=== PATIENT | male | born 1965 | race Caucasian/White ===

== ENCOUNTER 2019-01-03 16:29 | Inpatient (IN) ==
[2019-01-03] MEDS ORDERED: PULMICORT INH ONE (16:48)
[2019-01-03] MEDS ORDERED: DUONEB (A & A) INH ONE (16:48)
[2019-01-03 17:01] LABS: BASO% 1.5 % (0.0-0.8); EOS# 0.33 X1000 (0.0-0.7); HEMATOCRIT 43.1 % (42.0-52.0); HEMOGLOBIN 15.4 g/dL (14.0-18.0); IMM GRAN# 0.04 X1000 (0.0-0.04); IMM GRAN% 0.6 % (0.0-0.5); LYMPH# 0.78 X1000 (1.2-3.4); LYMPH% 11.8 % (20.5-51.1); MCH 28.6 PG (27-31); MCHC 35.7 g/dL (33-37); MCV 80.1 FL (81-99); MONO# 0.65 X1000 (0.11-0.59); MONO% 9.8 % (1.7-9.3); MPV 10.3 FL (7.4-10.4); NEUT% 71.3 % (42.2-75.2); PLT 167 X1000 (130-400); RBC 5.38 XMIL (4.7-6.1)
--- NOTE | 2019-01-03 17:01 | Diag Imaging Result Doc PS360 ---
EXAM: CHEST-PORTABLE HISTORY: chest pain TECHNIQUE: Portable chest single view COMPARISON: 12/15/2018 FINDINGS: The lungs are well expanded. The heart is not enlarged. The vessels are not distended. There are no infiltrates. No effusion identified. Mild scoliosis. Prior surgery to the lower neck. IMPRESSION: Negative exam. Electronically signed by Car Mckeon 01/03/2019 4:59 PM
[2019-01-03 17:23] LABS: AGAP 13; ALB/GLOB RATIO 1.8; ALBUMIN 4.3 g/dL (3.5-5.0); ALKALINE PHOSPHATASE 108 U/L (32-122); BUN 15 mg/dL (8-22); CALCIUM 9.6 mg/dL (8.8-10.2); CHLORIDE 99 mmol/L (98-107); CK PROFILE 88 U/L (24-204); COSMO 283; CREATININE 0.7 mg/dL (0.7-1.2); ESTIMATED GFR > 60; GLUCOSE 185 mg/dL (70-104); GOT 19 U/L (10-34); GPT 20 U/L (10-44); POTASSIUM 3.9 mmol/L (3.5-5.1); SODIUM 139 mmol/L (136-145); TCO2 27 mmol/L (25-35); TOTAL BILIRUBIN 0.58 mg/dL (0.20-1.00); TOTAL PROTEIN 6.7 g/dL (6.3-8.3)
[2019-01-03 17:40] LABS: ALLEN TEST YES; BE 5.6 mmoll (-3.0-3.0); BLOOD TYPE ARTERIAL; HCO3-(ACT) 29.1 mmoll (20.0-26.0); METHB 1.4 % (0.0-1.5); O2(CT) 19.6 mL/dL (15.0-23.0); O2HB 91.6 % (95.0-99.0); PCO2(98.6) 41 mmHg (35-45); PO2(98.6) 85 mmHg (60-100); SAMPLE BLOOD; SAO2 98.7 % (95.0-100.0); THB 15.2 g/dL (11.5-17.4); pH(98.6) 7.47 (7.35-7.45)
[2019-01-03 17:41] LABS: MODALITY ROOM AIR
--- NOTE | 2019-01-03 17:46 | PROVIDER DOCUMENTATION ---
This chart was entered by Cherelle Dempsey Scribe, acting as scribe for Ayse Broderick MD. HPI-Chest Pain - General Stated Complaint: chest pain Time Seen by Provider: 01/03/19 16:41 Source: patient Allergies/Adverse Reactions: Patient Allergies Allergy/AdvReac Type Severity Reaction Status Date / Time No Known Allergies Allergy Verified 05/04/17 00:44 Home Medications: Home Medication List Medication Instructions Recorded Confirmed Last Taken Type Buprenorphine/Naloxone S.l. 1 each SL BID #0 tablet 08/20/14 08/09/17 08/08/17 Rx [Suboxone 8 mg/2 mg] Gabapentin [Neurontin] 300 mg PO BID 09/03/15 08/09/17 08/08/17 History Metformin HCl 1,000 mg PO QHS 09/03/15 08/09/17 08/08/17 History Quetiapine Fumarate [Seroquel] 50 mg PO QHS 09/03/15 08/09/17 08/08/17 History Alprazolam [Xanax] 1 mg PO BID 05/04/17 08/09/17 08/08/17 History Ibuprofen [Motrin] 800 mg PO BID 05/04/17 08/09/17 08/08/17 History Lisinopril 20 mg PO DAILY 05/04/17 08/09/17 08/08/17 History Sulfamethoxazole/Trimethoprim 1 ea PO BID #10 tab 05/04/17 08/09/17 08/08/17 Rx [Bactrim Ds Tablet] Amoxicillin/Pot Clavulanate 875 mg PO Q12HR #14 tab 10/10/17 Unknown Rx [Augmentin] Lisinopril 20 mg PO DAILY #30 tab 12/15/18 Unknown Rx - History of Present Illness-CP Nature of Presenting Problem: 53 yowm presents to ed via ems with c/o chest pain, sob, n/v, diaphoresis and cough for 1 month and has been intermittent. pt sts has been taking his spray Nitro and ASA and pain has improved but last night pain returned and nitro and ASA seemed to lessen again till today when pt started to cut grass. pt sts pain came back worse then in the past and came in and called 911. pt on exam still has pain and is wheezing, diaphoretic with cough and sob. Location: reports: substernal Chest Pain Radiation: reports: no radiation Quality of Pain: reports: pressure Severity in ED: moderate Onset/Duration: just prior to arrival Timing: still present, intermittent Context/Activities at Onset: reports: light activity Modifying Factors: improves with: nothing Associated Symptoms: reports: nausea, shortness of breath, vomiting. denies: abdominal pain, back pain Nitro Today/Relief: provided at home (unnown amount of nitro spray since last night and today), mild relief Aspirin Treatment Today: provided at home (sts has been taking ASA since yesterday multiple times unknown how much) Review of Systems - Adult - REVIEW OF SYSTEMS - ADULT Constitutional: reports: no symptoms reported Eyes: reports: no symptoms reported Ears, Nose, Mouth & Throat: reports: no symptoms reported Cardiovascular: reports: see HPI, chest pain, edema. denies: syncope Respiratory: reports: see HPI, chronic cough, shortness of breath, wheezing Gastrointestinal: reports: see HPI, nausea, vomiting Genitourinary: reports: no symptoms reported Musculoskeletal: reports: no symptoms reported Integumentary: reports: no symptoms reported Neurological: denies: dizziness/vertigo, headache/migraines, slurred speech, syncope, tremors Psychiatric: reports: no symptoms reported Endocrine: reports: see HPI, excessive sweating Hematologic/Lymphatic: reports: no symptoms reported Allergic/Immunologic: reports: no symptoms reported All Other Systems: Reviewed and Negative Past History - Adult - PAST MEDICAL HISTORY-ADULT Review of Records: reports: Old Records Reviewed, Nursing Assessment Review, Medications Reviewed, Social history reviewed & non-contributory. Major Childhood Illnesses: reports: denies history Cardiovascular: reports: CAD, HTN, hyperlipidemia, [place] Respiratory: reports: COPD Genitourinary: reports: denies history Musculoskeletal: reports: chronic pain, other ("9 back surgeries") Neurological: reports: CVA (s/p TPA July 2012), other (hx of brain bleed) Endocrine/Immune: reports: Diabetes Diabetes Type: Type 2 Other Conditions: reports: MRSA - PRIOR SURGERIES/PROCEDURES Surgical/Procedure History: reports: cardiac stent, orthopedic (extremity) (knee Sx), back/neck (neck and back Sx) - IMMUNIZATION STATUS Childhood Immunizations: UTD Flu Vaccine: See Nurse Assessment - FAMILY HISTORY Family History: diabetes, CAD over 55 yo, CVA/TIA, HTN - SOCIAL HISTORY Smoking: cigarettes, chew, greater than 1 pack/day Provider spent 3-5 mins advising pt. on dangers of tobacco.: Discussed manners to quit use, and f/u contacts for add'l counseling. Substance Use: alcohol, marijuana Alcohol Use Frequency: occasionally Number of drinks per typical drinking period:: 3-4 drinks Living Situation: family Physical Exam-General - PHYSICAL EXAM-ADULT Initial Vital Signs Reviewed: Yes - CONSTITUTIONAL General Appearance: alert, mild distress, obese, anxious - EYES Eyes: PERRL/EOMI, pink conjunctivae - HEAD, EARS, NOSE, MOUTH & THROAT HENMT: moist mucous membranes, dental decay - NECK Neck: non-tender, full range of motion, supple, normal inspection - RESPIRATORY Respiratory: chest non-tender, wheezing, increased rate (24) - CARDIOVASCULAR Cardiovascular: normal peripheral pulses, tachycardia (105) - GASTROINTESTINAL (ABDOMEN) Abdominal Exam: normal bowel sounds, non tender, soft, other (nausea) - MUSCULOSKELETAL Back Exam: normal inspection, no CVA tenderness, no vertebral tenderness Extremity: normal range of motion, normal capillary refill, swelling (BLE edema) - SKIN Integumentary: diaphoresis. negative: normal color (flushed in appearance) - NEUROLOGIC Neurologic: grossly normal - PSYCHIATRIC Psych/Mental Status: normal mood/affect, normal thought content, normal thought process, oriented x 3, anxious - HEART Score HEART Score: History: Moderately Suspicious HEART Score: ECG: Non-Specific Repolarization Disturbance/LBBB/PM HEART Score: Age: 45-65 Years HEART Score: Risk Factors for Atherosclerotic Disease: 1 or 2 Risk Factors HEART Score: Troponin: < or = Normal Limit Total HEART Score:: 4 Progress - PLAN OF CARE/RESULTS Progress/Plan/Lab Results: Vital Signs - 8 hr 01/03/19 16:30 01/03/19 18:14 Temperature 98.0 F Pulse Rate 106 H 106 H Respiratory Rate 20 22 Blood Pressure 164/115 O2 Sat by Pulse Oximetry 97 Laboratory Results - last 24 hr 01/03/19 01/03/19 01/03/19 16:45 16:45 16:45 WBC 6.60 RBC 5.38 Hgb 15.4 Hct 43.1 MCV 80.1 L MCH 28.6 MCHC 35.7 RDW Std Deviation 13.0 Plt Count 167 MPV 10.3 Immature Gran % (Auto) 0.6 H Neut % (Auto) 71.3 Lymph % (Auto) 11.8 L [place] % (Auto) 9.8 H Eos % (Auto) 5.0 Baso % (Auto) 1.5 H Immature Gran # (Auto) 0.04 Neut # (Auto) 4.70 Lymph # (Auto) 0.78 L [place] # (Auto) 0.65 H Eos # (Auto) 0.33 Baso # (Auto) 0.10 Specimen Type Sample Site pH pCO2 pO2 HCO3 Base Excess Oxyhemoglobin ABG O2 Sat (Calculated) ABG O2 Saturation ABG Carboxyhemoglobin ABG Methemoglobin Samuel Test A-a O2 Difference Total Hemoglobin Lactate Blood Gas Modality FiO2 % Sodium 139 Potassium 3.9 Chloride 99 Carbon Dioxide 27 Anion Gap 13 BUN 15 Creatinine 0.7 Estimated GFR/1.73 m2 > 60 BUN/Creatinine Ratio 21 Glucose 185 H Calculated Osmolality 283 Calcium 9.6 Total Bilirubin 0.58 AST 19 ALT 20 Alkaline Phosphatase 108 Creatine Kinase 88 Troponin T [id number] Pept 178 H Total Protein 6.7 Albumin 4.3 Globulin 2.4 Albumin/Globulin Ratio 1.8 01/03/19 01/03/19 16:45 17:35 WBC RBC Hgb Hct MCV MCH MCHC RDW Std Deviation Plt Count MPV Immature Gran % (Auto) Neut % (Auto) Lymph % (Auto) [place] % (Auto) Eos % (Auto) Baso % (Auto) Immature Gran # (Auto) Neut # (Auto) Lymph # (Auto) [place] # (Auto) Eos # (Auto) Baso # (Auto) Specimen Type ARTERIAL Sample Site L RADIAL pH 7.47 H pCO2 41 pO2 85 HCO3 29.1 H Base Excess 5.6 H Oxyhemoglobin 91.6 L ABG O2 Sat (Calculated) 19.6 ABG O2 Saturation 98.7 ABG Carboxyhemoglobin 5.80 H* ABG Methemoglobin 1.4 Samuel Test YES A-a O2 Difference 13.0 Total Hemoglobin 15.2 Lactate 1.20 Blood Gas Modality ROOM AIR FiO2 % 21.0 Sodium Potassium Chloride Carbon Dioxide Anion Gap BUN Creatinine Estimated GFR/1.73 m2 BUN/Creatinine Ratio Glucose Calculated Osmolality Calcium Total Bilirubin AST ALT Alkaline Phosphatase Creatine Kinase Troponin T < 0.010 [id number] Pept Total Protein Albumin Globulin Albumin/Globulin Ratio Orders Category Date Time Status Saline Loc NOW Care 01/03/19 16:46 Active CHEST-PORTABLE [RAD] Stat Exams 01/03/19 16:46 Completed ABG [RESP] Routine Lab 01/03/19 17:35 Completed CBC WITH DIFF [HEME] Stat Lab 01/03/19 16:45 Completed CK PROFILE [SP CHEM] Stat Lab 01/03/19 16:45 Completed COMPREHENSIVE METABOLIC PANEL [CHEM] Stat Lab 01/03/19 16:45 Completed PRO B-NATRIURETIC PEPTIDE Stat Lab 01/03/19 16:45 Completed TROPONIN T Stat Lab 01/03/19 16:45 Completed Albuterol 2.5MG/Ipratrop 0.5MG [Duoneb (A & A)] Med 01/03/19 16:48 Discontinued 3 ml INH NOW ONE Budesonide [Pulmicort] Med 01/03/19 16:48 Discontinued 0.5 mg INH NOW ONE Enoxaparin 1 mg/kg [Lovenox 1 mg/kg] Med 01/03/19 18:15 Discontinued 1 each SUBQ NOW ONE Morphine Med 01/03/19 18:20 Once 4 mg IV NOW ONE Ondansetron [Zofran] Med 01/03/19 18:20 Once 4 mg IV NOW ONE Aerosol Treatments Routine Oth 01/03/19 16:48 Completed Aerosol Treatments Routine Oth 01/03/19 16:48 Completed Aerosol Treatments Stat Oth 01/03/19 16:48 Completed Aerosol Treatments Stat Oth 01/03/19 16:48 Completed Result Diagrams: 01/03/19 16:45 01/03/19 16:45 - REASSESSMENT Reassessment #1 Time Reassessed: 17:04 Status: unchanged - EKG 1 Time of EKG reading by physician:: 16:31 EKG Read and Signed by:: Ayse Broderick EKG Interpretation (*Must complete 3 of following elements*): Normal Rate: 105 Rhythm: sinus tachycardia Faber: normal QRS: normal FL Interval: normal ST Wave: normal - XRAY 1 XRAY: Bilateral XRAY Study: Chest Impression: See EMR Report (EXAM: CHEST-PORTABLE HISTORY: chest pain TECHNIQUE: Portable chest single view COMPARISON: 12/15/2018 FINDINGS: The lungs are well expanded. The heart is not enlarged. The vessels are not distended. There are no infiltrates. No effusion identified. Mild scoliosis. Prior surgery to the lower neck. IMPRESSION: Negative exam. Electronically signed by Car Mckeon 01/03/2019 4:59 PM 01/03/191658 Interpreting Physician: Car Mckeon MD Dictated Date/Time: 01/03/191657 cc: Ayse Broderick MD; None,PCP) - CONSULTS/PCP/HOSPITALIST Notification #1 *Consult/PCP/Hospitalist*: Dr Rhodes, hospitalist Time Discussed: 18:20 Consult Disposition: Will see in ED, Admit Departure - Departure Date of Disposition Decision: 01/03/19 Time of Disposition Decision: 18:19 DIAGNOSIS: Chest pain Disposition: ADMITTED INPATIENT 09 Certified Medical Emergency: Emergent Condition: Serious Referrals and Follow-Ups: None,PCP [Primary Care Provider] - - Critical Care Note This patient required my direct & personal management of CC.: No Attestation - Physician/ BASSEM Attestation Patient care was provided by Advanced Practice Provider:: No The physician spent face to face time with patient:: Yes Advanced Practice Provider documentation review:: Supervising physician onsite and consulted in the evaluation and care of this patient. The physician did have a face to face encounter with the patient. This chart was documented by the indicated scribe, (Cherelle Dempsey Scribe) and accurately reflects the services I performed and decisions made by me, Ayse Broderick MD, as attested by the provider's signature.
[2019-01-03] MEDS: LOVENOX 1 MG/KG SUBQ ONE (18:15)
[2019-01-03] MEDS ORDERED: ZOFRAN IV ONE (18:20)
[2019-01-03] MEDS ORDERED: MORPHINE IV ONE (18:20)
[2019-01-03] MEDS ORDERED: ASPIRIN PO STA (18:21)
[2019-01-03] MEDS ORDERED: LOPRESSOR PO ONE (18:22)
[2019-01-03] MEDS ORDERED: LOVENOX SUBQ ONE (18:30)
[2019-01-03] MEDS ORDERED: LIPITOR PO ONE (19:01)
[2019-01-03] MEDS ORDERED: PROTONIX IV ONE (19:02)
[2019-01-03] MEDS: LABETALOL IV PRN (19:48)
[2019-01-03] MEDS: SODIUM CHLORIDE 0.9% INJ SCH (20:07)
[2019-01-03] MEDS: APRESOLINE IV PRN (20:08)
--- NOTE | 2019-01-03 20:25 | HISTORY AND PHYSICAL ---
CHIEF COMPLAINT: Chest pain of about 4 weeks' duration. HISTORY OF PRESENT ILLNESS: Mr. Chowdhury is a 53-year-old man, with past medical history of medical noncompliance, coronary artery disease, status post stent in RCA twice and LAD once in 2012, intracranial hemorrhage, active tobacco abuse, type 2 diabetes mellitus, COPD, chronic pain, who comes in with chief complaints of chest pain and diaphoresis. In the emergency room, his vitals showed hypertension with systolic blood pressure of 160. EKG has sinus tachycardia and troponins are negative. Hospitalist team has been consulted for further management of his chest pain. Apparently, the patient had coronary artery disease requiring stenting in 2012, following which he had developed intracranial hemorrhage. He was admitted again in 2016 with chest pain episode, and cardiology team was working him up. He had undergone myocardial perfusion imaging which was unremarkable in 2016. However, before his medication regimen could be optimized, he had left against medical advice. The patient had not been taking any medicines whatsoever for several years now. He has not seen any regular doctor or heart doctor in several years now. He had presented to emergency room with chest pain about 2 weeks ago, and was discharged home on blood pressure medication, but he has not filled any medication. He states he does not have insurance and he does not work. Currently, he is complaining of substernal chest pain, 8 on 10 intensity, radiating to left shoulder, associated with diaphoresis and mild shortness of breath. He denies any palpitation. He denies cough. He denies nausea, vomiting, abdominal pain, though he did have vomiting episode about 2 weeks ago. He denies burning urination or diarrhea or constipation. REVIEW OF SYSTEMS: Positive for headache. Positive for anxiety. PAST MEDICAL HISTORY: 1. Coronary artery disease, requiring PCI in 2012, twice in RCA and LAD. 2. Hemorrhagic stroke in 2013, without any residual defects. 3. Active tobacco abuse. 4. Noninsulin-dependent diabetes mellitus. 5. Essential hypertension. 6. Hyperlipidemia. 7. COPD. 8. Chronic pain disorder. PAST SURGICAL HISTORY: 1. Multiple back surgeries. 2. Multiple neck surgeries. 3. Bilateral knee arthroscopy. CURRENT MEDICATION: He is not taking any medication whatsoever. ALLERGIES: No known allergies. FAMILY HISTORY: Positive for hypertension. VITAL SIGNS: Currently, temperature 98.6 degrees, pulse 85, respiratory rate 17, blood pressure 160/100. He is saturating 98% on room air. PHYSICAL EXAMINATION: GENERAL: He does not appear to be in any acute distress. He appears anxious. No pallor, cyanosis, clubbing, or icterus. ORAL CAVITY: Moist. LUNGS: Air entry bilaterally equal. No wheeze, rhonchi, crackles. CARDIOVASCULAR: S1, S2 normal. No murmur or gallop. ABDOMEN: Soft, nontender. EXTREMITIES: No lower extremity edema. There is no hepatojugular reflux. NEUROLOGIC: He is alert oriented x3. He does not have any focal deficit. LABS: Suggestive of normal hemoglobin, normal platelet count, normal WBC. He has normal BUN, normal creatinine, normal troponins. ProBNP is 178. IMAGING: Chest x-ray did not have any acute cardiopulmonary process. EKG: Sinus tachycardia. ASSESSMENT AND PLAN: 1. Chest pain at rest, with prior history of coronary artery disease, requiring stent in 2012 with suspicion for unstable angina. 2. History of intracranial hemorrhage in 2013. 3. Noninsulin-dependent diabetes mellitus. 4. Active tobacco abuse. 5. Obesity. 6. Medical noncompliance. PLAN: The patient's chest pain is concerning, considering he previously had coronary artery disease with stenting and he has not been on any medication. He took 325 mg of aspirin at home. I will start him on beta blockers, aspirin, statin. I will get echocardiogram, serial troponins, and nuclear medicine stress test. I will consult Cardiology tomorrow morning. I will admit him in cardiac unit. Plan of care discussed with the patient. His questions have been answered. cc: MD BETTYE Pierre
[2019-01-03] MEDS: HUMALOG SUBQ SCH (21:41)
[2019-01-04] MEDS: APRESOLINE IV PRN (00:46)
[2019-01-04] MEDS: NITROGLYCERIN SL PRN ×3 (01:49→09:00)
[2019-01-04] MEDS: MORPHINE IV PRN ×2 (02:05→09:42)
--- NOTE | 2019-01-04 02:14 | EKG Report ---
Test Performed on : 01/04/2019 01:59:21 AM Test Reason : CP Blood Pressure : / mmHG Vent. Rate : 081 BPM Atrial Rate : 081 BPM P-R Int : 200 ms QRS Dur : 096 ms QT Int : 384 ms P-R-T Axes : 073 013 072 degrees QTc Int : 446 ms Normal sinus rhythm. Possible Left atrial enlargement Nonspecific T wave abnormality Abnormal ECG When compared with ECG of 03-JAN-2019 16:31, (Unconfirmed) Nonspecific T wave abnormality, worse in Anterolateral leads Confirmed by Chad Monk MD ([id number]) on 01/04/2019 4:28:25 PM
[2019-01-04] MEDS: LABETALOL IV PRN (02:17)
[2019-01-04] MEDS: LOPRESSOR PO SCH ×2 (05:36→09:00)
[2019-01-04 05:54] LABS: AGAP 10; BUN 15 mg/dL (8-22); CALCIUM 9.6 mg/dL (8.8-10.2); CHLORIDE 104 mmol/L (98-107); COSMO 288; CREATININE 0.8 mg/dL (0.7-1.2); ESTIMATED GFR > 60; GLUCOSE 143 mg/dL (70-104); MAGNESIUM 1.9 mg/dL (1.5-2.7); POTASSIUM 3.9 mmol/L (3.5-5.1); SODIUM 143 mmol/L (136-145); TCO2 29 mmol/L (25-35)
[2019-01-04 05:57] LABS: HEMOGLOBIN A1C 6.1 % (4.8-6.0)
[2019-01-04] MEDS: SODIUM CHLORIDE 0.9% INJ SCH (06:02)
[2019-01-04 06:13] LABS: BASO# 0.14 X1000 (0.0-0.2); BASO% 2.3 % (0.0-0.8); EOS# 0.35 X1000 (0.0-0.7); EOS% 5.6 % (0.0-10.0); HEMATOCRIT 42.6 % (42.0-52.0); HEMOGLOBIN 14.9 g/dL (14.0-18.0); IMM GRAN# 0.04 X1000 (0.0-0.04); IMM GRAN% 0.6 % (0.0-0.5); LYMPH# 1.11 X1000 (1.2-3.4); LYMPH% 17.8 % (20.5-51.1); MCH 28.5 PG (27-31); MCV 81.5 FL (81-99); MONO# 0.71 X1000 (0.11-0.59); MONO% 11.4 % (1.7-9.3); MPV 9.9 FL (7.4-10.4); NEUT# 3.87 X1000 (1.4-6.5); NEUT% 62.3 % (42.2-75.2); PLT 170 X1000 (130-400); RBC 5.23 XMIL (4.7-6.1); RDW 13.2 % (11.5-14.5); WBC 6.22 X1000 (4.8-10.8)
[2019-01-04 06:24] LABS: CHOLESTEROL 184 mg/dL (0-200); HDL 43 mg/dL (35-55); LDL 124 mg/dL; TRIGLYCERIDES 86 mg/dL (39-160); VLDL 17 mg/dL
[2019-01-04] MEDS: HUMALOG SUBQ SCH ×2 (06:33→11:32)
--- NOTE | 2019-01-04 06:43 | EKG Report ---
Test Performed on : 01/03/2019 4:31:14 PM Test Reason : ED. NO EKG ORDER FOR MUSE Blood Pressure : / mmHG Vent. Rate : 105 BPM Atrial Rate : 105 BPM P-R Int : 162 ms QRS Dur : 090 ms QT Int : 348 ms P-R-T Axes : 069 010 062 degrees QTc Int : 459 ms Sinus tachycardia. Otherwise normal ECG When compared with ECG of 15-DEC-2018 12:27, (Unconfirmed) No significant change was found Unconfirmed Result
[2019-01-04 06:45] LABS: EOS 3 % (1-10); LYMPHS 8 % (21-51); MONO 2 % (1-9); POLYCHROM 1+; SEGS 81 % (42-75)
[2019-01-04] MEDS ORDERED: PROTONIX IV SCH (07:00)
[2019-01-04 07:40] VITALS: BP 167/104
--- NOTE | 2019-01-04 07:42 | EKG Report ---
Test Performed on : 01/04/2019 06:40:06 AM Test Reason : chest pain Blood Pressure : / mmHG Vent. Rate : 071 BPM Atrial Rate : 071 BPM P-R Int : 202 ms QRS Dur : 096 ms QT Int : 412 ms P-R-T Axes : 070 022 072 degrees QTc Int : 447 ms Normal sinus rhythm. T wave abnormality, consider anterior ischemia Abnormal ECG When compared with ECG of 04-JAN-2019 01:59, (Unconfirmed) No significant change was found Confirmed by Chad Monk MD ([id number]) on 01/04/2019 4:28:38 PM
[2019-01-04] MEDS ORDERED: LR 1,000 ML IV SCH (08:30)
[2019-01-04] MEDS ORDERED: ASPIRIN PO SCH (09:00)
[2019-01-04] MEDS ORDERED: LOVENOX SUBQ SCH (09:00)
[2019-01-04] MEDS: ISMO PO SCH ×2 (09:13→09:45)
[2019-01-04] MEDS ORDERED: NITROGLYCERIN TOP ONE (09:15)
[2019-01-04] MEDS ORDERED: NITROGLYCERIN TOP SCH (09:15)
[2019-01-04] MEDS ORDERED: LOPRESSOR PO ONE (09:30)
--- NOTE | 2019-01-04 10:25 | CARDIOLOGY CONSULTATION ---
DATE: 01/04/2019 CHIEF COMPLAINT ON PRESENTATION: Chest pain. HISTORY OF PRESENT ILLNESS: Mr. Chowdhury is a 53-year-old gentleman with a history of coronary disease, not following up with physicians in the interim secondary to his loss of disability. He continues to smoke. He presents with complaints of that are described as a pressure-like sensation mainly of the left upper chest that have occurred intermittently over the last several months and have escalated in the last month. Yesterday, he had the onset of pain that really has not abated in the interim. There is an exertional component occurring over the last several months with activities such as walking across a room. Again, he continues to smoke. There is no diaphoresis. He occasionally get short of breath with the episodes. No nausea. PAST MEDICAL HISTORY: 1. Significant for coronary disease with previous PCI. His last cardiac catheterization was performed in [facility] in May 2014. This demonstrated a proximal stent that was patent in the right coronary with a distal bifurcation on 95% lesion which appeared at that time to have been angioplastied. There was an apparent question of a hemorrhagic stroke at the time. The left main was listed as intact. The circumflex had a 20% narrowing at some point in the vessel but was not detailed. The proximal left anterior descending stent was intact. There appeared to be a diagonal that was small and narrowed to about 60%. The remainder of the left anterior descending coronary artery was described as intact. 2. Hypertension. 3. History of a hemorrhagic stroke occurring in June 2012 at the time of previous stenting. 4. Type 2 diabetes. 5. COPD. 6. History of substance abuse with present Suboxone use. 7. Chronic pain. SOCIAL HISTORY: He does smoke. FAMILY HISTORY: Significant for hypertension. REVIEW OF SYSTEMS: A 10 system review of systems is negative except for those things mentioned in the HPI. PHYSICAL EXAMINATION: Vital signs: Afebrile, heart rate 86. His presenting blood pressure was 164/115, most recent 167/104. Generally: He is in no acute distress. HEENT: Oropharynx is moist. He has poor dentition. His eye examination shows pink conjunctivae, white sclerae. Neck: Examination shows no obvious thyromegaly or thyroid tenderness. Cardiovascular: He sounds to be in a regular rate and rhythm. He has no obvious murmurs. He has no S3. He has no carotid bruits. Chest: Sounds relatively clear to auscultation bilaterally. He has no increased work of breathing. Abdomen: Soft, nontender, nondistended. No obvious organomegaly. Skin: Warm and dry throughout. He has no obvious rashes. Neurological: He is moving all extremities well. He has no lateralizing deficits. PERTINENT DATA: His chest x-ray shows essentially an unremarkable study other than mild scoliosis. His electrocardiogram on the at 16:31 shows sinus rhythm, no signs of infarct. No signs of ischemic changes. His EKG on the at 1:59 a.m. starts to show some mild ST T changes in V3 and V4. No clear T-wave inversions but there are some biphasic Ts. No signs of infarct and his final EKG occurring on the at 6:40 a.m. shows clear change of his T-waves in V3 and V4 with inversions, otherwise sinus rhythm, 71 beats per minute. LABORATORY DATA: Shows a white count of 6.2, hematocrit 42, platelet count 170,000. He has a left shift. His lactate was normal. Yesterday, his sodium was 143, potassium 3.9, BUN 15, creatinine 0.8. He had troponins that have been negative x2. His LDL today is 124 with an HDL of 43. ASSESSMENT: Mr. Chowdhury is a 53-year-old gentleman, who presents with chest discomfort that is concerning for unstable angina as well as EKG changes concerning for ischemia. PLAN: Presently his clinical picture seems to be unstable angina. His pain has not been controlled with addition of beta-blockers and nitrates. Considering his symptoms, his previous history and his interim noncompliance with appropriate therapy, I have requested transfer to [facility] for left heart catheterization today. Considering the patient's unstable angina and previous stents, there is a higher possibility of need for PCI. He has been administered Lovenox as well as aspirin. He is on high-intensity statin therapy. cc: David Vines MD [email or web address]
--- NOTE | 2019-01-04 11:22 | DISCHARGE SUMMARY ---
ADMISSION DATE: 01/03/2019 DISCHARGE DATE: 01/04/2019 DISCHARGE DISPOSITION: The patient is currently being transferred to [facility] for persistent chest pain and suspicion for acute coronary syndrome, unstable angina for coronary angiography and possible PCI. DISCHARGE CONDITION: The patient is complaining of chest pain. Hemodynamically stable. Not short of breath. No palpitations. DISCHARGE DIAGNOSES: 1. Unstable angina. 2. Active tobacco abuse. 3. Brq-[id number]-[id number] diabetes mellitus. 4. Medication noncompliance. He is only taking aspirin once a day at home and does not taking any antihypertensive medications. OTHER DIAGNOSES: 1. History of coronary artery disease requiring PCI in 2012, twice in the RCA and once in [facility]. 2. Hemorrhagic stroke post PCI in 2012 without any residual defects. 3. Essential hypertension. 4. Hyperlipidemia. 5. Chronic obstructive pulmonary disease. 6. Chronic pain disorder. CONSULTATIONS DURING HOSPITALIZATION: Cardiology, Dr. David iVnes. HOME GO MEDICATIONS: 1. Atorvastatin 80 mg at nighttime. 2. Nitroglycerin 0.4 mg sublingual every 5 minutes as needed for chest pain. 3. Hydralazine 10 mg IV q.4 hours as needed for systolic blood pressure more than 160. 4. Aspirin 81 mg daily. 5. Isosorbide 20 mg b.i.d. 6. Labetalol 10 mg IV q.4 hours as needed for systolic blood pressure more than 150. 7. Metoprolol 25 mg every 6 hours. 8. Enoxaparin 100 mg subcu q.12 hours. 9. Morphine 0.5 mg IV every 4 hours as needed for chest pain not resolved on nitroglycerin. 10. Pantoprazole 40 mg IV q.24 hours. VITAL SIGNS ON DISCHARGE: Temperature 98.1 degrees, pulse 86, respiratory rate 16, blood pressure 160/100, saturating 98% on 2 L nasal cannula. PHYSICAL EXAMINATION: General: In mild distress because of chest pain. HEENT: Oral cavity is moist. Lungs: Air entry bilaterally equal. No wheeze, rhonchi, crackles. Cardiovascular: S1 and S2 normal. No murmur or gallop. Abdomen: Soft, nontender. Extremities: No evidence of leg edema. Neurologic: He is alert and oriented x3. LABORATORY DATA: Significant labs during hospital discharge: WBC 6.2, hemoglobin 14.9, platelet 170,000. His BUN is 15, creatinine 0.8. His troponins are less than 0.010 twice. His hemoglobin A1c is 6.1. His magnesium is 1.9. His lipid panel suggests total cholesterol of 184, LDL of 124. Significant microbiology during hospital admission none. IMAGING: Chest x-ray on admission did not have any acute cardiopulmonary process. EKG on admission had sinus tachycardia, however, 12 hours later, repeat EKG performed had started showing T-wave inversions in lead V3 and V4. HOSPITAL COURSE SUMMARY: Mr. Chowdhury is 53-year-old man with the above- mentioned past medical history of coronary artery disease requiring PCI in 2012, medication noncompliance. Apparently, he was admitted in 2016 for chest pain and had left against medical advice, and he has not been taking any medicines except aspirin as needed since past few years. He came in with chief complaints of chest pain of about 4 weeks duration. Apparently, he was in the hospital 2 weeks ago in the emergency room for the same complaints and he was sent back home according to history given by him. However, his chest pain did not get better, so he decided to come back again. On current presentation, his chest pain was located in the center of the chest, present at rest, worsening on physical exertion like going to the bathroom. Also, relieved to some extent with nitroglycerin and radiating to left arm associated with diaphoresis. His symptoms were concerning, so he was admitted. He had already received 325 mg of aspirin. He was started on a beta fabi 1 mg/kg subcu enoxaparin, and Cardiology team was consulted. Considering prior history of PCI and noncompliance with medication, it was decided that unstable angina would require PCI. So, after keeping him on aspirin and enoxaparin, [facility] was consulted and he will be transferred for PCI. Plan of care discussed with him. More than 30 minutes spent discharging this patient. cc: MD BETTYE Pierre
[2019-01-04] MEDS ORDERED: LOPRESSOR PO SCH (15:00)
[2019-01-04] MEDS ORDERED: LIPITOR PO SCH ×2 (21:00)
== END 2019-01-04 11:32 | disposition short-term general hospital (02) | DRG 303 ==
LOC: SUPCPDRO → ED 16:29 → 2N 20:33
PROVIDERS: ATTEND Internal Medicine